=== PATIENT | male | born 1995 | race Caucasian/White ===

== ENCOUNTER 2017-07-08 22:48 | Emergency (ER) | payer OTHER, BC ==
[2017-07-08] MEDS ORDERED: IBUPROFEN 800 MG TAB PO ONE (22:52)
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
[2017-07-09 00:13] VITALS: BP 137/86; PULSE 87; RESP 18; TEMP 98.4; O2SAT 96
== END 2017-07-09 00:12 | disposition home or self-care (01) ==
DX: S16.1XXA Strain of muscle, fascia and tendon at neck level, initial encounter (principal); T14.8XXA Other injury of unspecified body region, initial encounter; V49.00XA Driver injured in collision with unspecified motor vehicles in nontraffic accident, initial encounter; Y92.410 Unspecified street and highway as the place of occurrence of the external cause; Y93.89 Activity, other specified